=== PATIENT | female | born 1965 | race Caucasian/White ===

== ENCOUNTER 2022-04-25 07:21 | Outpatient (CLI) | payer OTHER, SELFPAY ==
[2022-04-25 07:45] LABS: Basophils Absolute Auto 0.1 K/mm3 (0.0-0.1); Eosinophils Absolute Auto 0.3 K/mm3 (0-0.3); Eosinophils Percent Auto 4.1 % (0-4.4); Hematocrit 41.2 % (37.0-47.0); Hemoglobin 13.6 g/dL (12.0-15.0); Immature Granulocyte Absolute 0.02 K/mm3 (0.00-0.031); Immature Granulocyte Percent A 0.3 % (0-0.5); Lymphocytes Absolute Auto 2.49 K/mm3 (0.9-3.2); Lymphocytes Percent Auto 34.3 % (18.3-44.2); Mean Corpuscular Hemoglobin 31.1 pg (26-34); Mean Corpuscular Volume 94.3 fl (80-100); Mean Platelet Volume 9.1 fl (7.4-10.4); Monocytes Absolute Auto 0.5 K/mm3 (0.1-0.6); Monocytes Percent Auto 7.4 % (2.6-8.5); Neutrophils Absolute Auto 3.9 K/mm3 (1.3-6.7); Neutrophils Percent Auto 52.9 % (45.5-73.1); Platelet Count Result 327 k/mm3 (150-375); Red Blood Count 4.37 M/mm3 (4.2-5.4); Red Cell Distribution Width 13.2 % (11.5-14.5); White Blood Count 7.3 K/mm3 (4.5-10.0)
[2022-04-25 07:46] LABS: Appearance Urine Clear (Clear); Bilirubin Urine Negative (Negative); Blood Urine Negative (Negative); Color Urine Yellow (Yellow); Glucose Urine UA Negative (Negative); Ketones Urine Negative (Negative); Leukocyte Esterase Ur Negative LEU/UL (Negative); Nitrate Urine Negative (Negative); Protein Urine Negative (Negative); Specific Grav Ur 1.025 (1.001-1.035); Urobilinogen Urine 0.2 mg/dL (<2.0); pH Urine 6.5 (5.0-9.0)
[2022-04-25 07:54] LABS: Mucus Urine Rare /lpf; RBC Urine 0-2 /hpf (0-2); Squamous Epithelial Cell Urine Rare /hpf (Few); WBC Urine 0-3 /hpf
[2022-04-25 08:01] LABS: Add Urine Microscopic? YES
[2022-04-25 08:02] LABS: Alanine Aminotransferase 19 U/L (6-35); Albumin Level 4.4 g/dL (3.5-5.1); Alkaline Phosphatase 58 U/L (38-126); Anion Gap 6 mmol/L (8-16); Aspartate Amino Transferase 24 U/L (14-36); Bilirubin,Total 0.6 mg/dL (0.2-1.3); Blood Urea Nitrogen 14 mg/dL (7-17); Calcium 8.5 mg/dL (8.4-10.2); Carbon Dioxide 27 mmol/L (22-30); Chloride 107 mmol/L (98-107); Cholesterol 223 mg/dL (0-200); Estimated Glomerular Filt Rate > 60; Glucose 106 mg/dL (65-110); HDL Direct 56 mg/dL; Potassium 4.4 mmol/L (3.4-5.0); Sodium 140 mmol/L (137-145); Triglycerides 78 mg/dL (<150); Uric Acid 4.3 mg/dL (2.5-7.5)
[2022-04-25 08:10] LABS: LDL Cholesterol Direct 120 mg/dL
[2022-04-25 08:28] LABS: Free T4 Free Thyroxine 1.54 ng/mL (0.78-2.19); Vitamin D 25 Hydroxy 43.2 ng/mL
== END 2022-04-25 07:22 | disposition home or self-care (01) ==
PROVIDERS: Visit Provider Internal Medicine
DX: Z13.6 Encounter for screening for cardiovascular disorders (principal); Z13.220 Encounter for screening for lipoid disorders; Z13.29 Encounter for screening for other suspected endocrine disorder; E03.9 Hypothyroidism, unspecified
CPT/HCPCS: 36415; 80053; 80061; 81001; 82306; 84439; 84443; 84550; 85025

== ENCOUNTER 2022-08-15 07:52 | Outpatient (CLI) | payer OTHER, SELFPAY ==
--- NOTE | ~2022-08-15 | MM_ITS ---
EXAMINATION: MM screening omar BI w mario HISTORY: Screening TECHNIQUE: Craniocaudal and mediolateral oblique 3-D tomosynthesis images were obtained and synthetic 2-D images were generated. CAD analysis was submitted and interpreted. COMPARISON: No prior mammogram is available for comparison at this institution. BREAST PARENCHYMAL COMPOSITION: There are scattered areas of fibroglandular density. FINDINGS: There is no evidence of suspicious mass, calcification, or architectural distortion to sugg est malignancy in either breast. There has been no suspicious interval change. IMPRESSION: 1. No mammographic evidence of malignancy. 2. Recommend routine screening mammography in one year. BI-RADS Category 1: Negative Reviewed, dictated and finalized at location A. PREAD SEAMER
== END 2022-08-15 07:53 | disposition home or self-care (01) ==
PROVIDERS: PCP Internal Medicine; Visit Provider Internal Medicine
DX: Z12.31 Encounter for screening mammogram for malignant neoplasm of breast (principal)
CPT/HCPCS: 77063; 77067

== ENCOUNTER 2023-09-04 07:36 | Outpatient (CLI) | payer OTHER, SELFPAY ==
[2023-09-04 08:33] LABS: Alanine Aminotransferase 25 U/L (6-35); Albumin Level 4.2 g/dL (3.5-5.1); Alkaline Phosphatase 69 U/L (38-126); Aspartate Amino Transferase 25 U/L (14-36); Bilirubin,Total 0.6 mg/dL (0.2-1.3); Blood Urea Nitrogen 15 mg/dL (7-17); Calcium 9.1 mg/dL (8.4-10.2); Carbon Dioxide 27 mmol/L (22-30); Chloride 106 mmol/L (98-107); Cholesterol 222 mg/dL (0-200); Estimated Glomerular Filt Rate > 60; Glucose 98 mg/dL (65-110); HDL Direct 53 mg/dL; Potassium 4.5 mmol/L (3.4-5.0); Triglycerides 59 mg/dL (<150)
[2023-09-04 08:38] LABS: LDL Cholesterol Direct 125 mg/dL
[2023-09-04 08:42] LABS: Anion Gap 7 mmol/L (8-16); Sodium 140 mmol/L (137-145)
[2023-09-04 09:11] LABS: Basophils Absolute Auto 0.1 K/mm3 (0.0-0.1); Basophils Percent Auto 0.7 % (0.2-1.2); Eosinophils Absolute Auto 0.4 K/mm3 (0-0.3); Eosinophils Percent Auto 4.6 % (0-4.4); Hematocrit 42.4 % (37.0-47.0); Hemoglobin 13.7 g/dL (12.0-15.0); Immature Granulocyte Absolute 0.02 K/mm3 (0.00-0.031); Immature Granulocyte Percent A 0.2 % (0-0.5); Lymphocytes Absolute Auto 2.35 K/mm3 (0.9-3.2); Lymphocytes Percent Auto 28.7 % (18.3-44.2); Mean Corpuscular HGB Conc 32.3 g/dl (32-36); Mean Corpuscular Hemoglobin 30.4 pg (26-34); Mean Corpuscular Volume 94.2 fl (80-100); Mean Platelet Volume 9.8 fl (7.4-10.4); Monocytes Absolute Auto 0.7 K/mm3 (0.1-0.6); Neutrophils Absolute Auto 4.7 K/mm3 (1.3-6.7); Neutrophils Percent Auto 57.8 % (45.5-73.1); Platelet Count Result 359 k/mm3 (150-375); Red Cell Distribution Width 12.9 % (11.5-14.5); Thyroid Stimulating Hormone Reflex 0.427 uIU/mL (0.465-4.68); White Blood Count 8.2 K/mm3 (4.5-10.0)
[2023-09-04 10:16] LABS: Appearance Urine Clear (Clear); Bilirubin Urine Negative (Negative); Blood Urine Negative (Negative); Color Urine Yellow (Yellow); Glucose Urine UA Negative (Negative); Ketones Urine Negative (Negative); Leukocyte Esterase Ur Negative LEU/UL (Negative); Nitrate Urine Negative (Negative); Protein Urine Negative (Negative); Specific Grav Ur 1.021 (1.001-1.035); Urobilinogen Urine 0.2 mg/dL (<2.0); pH Urine 7.5 (5.0-9.0)
[2023-09-04 10:23] LABS: Free T4 Free Thyroxine Reflex 1.57 ng/dL (0.78-2.19)
[2023-09-04 10:31] LABS: Add Urine Microscopic? NO
[2023-09-04 11:20] LABS: Total Triiodothyronine (T3) 1.26 NG/ML (0.97-1.69)
== END 2023-09-04 07:37 | disposition home or self-care (01) ==
LOC: ANHLAB 07:39
PROVIDERS: PCP Internal Medicine; Visit Provider Internal Medicine
DX: Z00.00 Encounter for general adult medical examination without abnormal findings (principal)
CPT/HCPCS: 36415; 80053; 80061; 81003; 84439; 84443; 84480; 85025

== ENCOUNTER 2023-10-12 12:34 | Outpatient (CLI) | payer OTHER, SELFPAY ==
--- NOTE | ~2023-10-12 | MM_ITS ---
EXAMINATION: MM screening omar BI w mario HISTORY: Screening mammogram TECHNIQUE: Craniocaudal and mediolateral oblique 3-D tomosynthesis images were obtained and synthetic 2-D images were generated. CAD analysis was submitted and interpreted. COMPARISON: 08/15/2022 BREAST PARENCHYMAL COMPOSITION: There are scattered areas of fibroglandular density. FINDINGS: No suspicious mass, calcification, or architectural distortion are identified in either екатерина ast to suggest malignancy. There has been no suspicious interval change. IMPRESSION: 1. No mammographic evidence of malignancy. 2. Recommend routine screening mammography in one year. BI-RADS Category 1: Negative Reviewed, dictated and finalized at location A. NMENT MECHANIC
== END 2023-10-12 15:19 | disposition home or self-care (01) ==
PROVIDERS: PCP Internal Medicine; Visit Provider Obstetrics & Gynecology Gynecology
DX: Z12.31 Encounter for screening mammogram for malignant neoplasm of breast (principal)
CPT/HCPCS: 77063; 77067

== ENCOUNTER 2024-02-26 08:00 | Outpatient (CLI) | payer OTHER, SELFPAY ==
--- NOTE | ~2024-02-26 | US_ITS ---
EXAMINATION: US abdomen complete DATE: 02/26/2024 08:27 INDICATION: Left lower quadrant abdominal pain. Abdominal bloating. TECHNIQUE: Multiple grayscale and Doppler ultrasound images of the abdomen were obtained. COMPARISON: None FINDINGS: Abdominal aorta is normal in caliber. Inferior vena cava is normal. The visualized portions of the head, body, and tail of the pancreas are normal. The liver is normal without focal lesion. Th ere is normal flow in main portal vein. The gallbladder is normal in size. No gallstones or gallbladd er wall thickening. There is no sonographic Harding's sign. The common duct is normal and measures 3 m m. The kidneys are normal in size. The spleen is normal in size. There is no visible abnormality in l eft lower quadrant. IMPRESSION: 1. Normal complete abdomen ultrasound. Reviewed, dictated and finalized at location E.
== END 2024-02-26 08:01 | disposition home or self-care (01) ==
LOC: ANHIMG 08:02
PROVIDERS: PCP Internal Medicine; Visit Provider Advanced Practice Midwife
DX: R10.32 Left lower quadrant pain (principal); R14.0 Abdominal distension (gaseous)
CPT/HCPCS: 76700

== ENCOUNTER 2024-02-28 14:40 | Outpatient (CLI) | payer OTHER, SELFPAY ==
--- NOTE | ~2024-02-28 | US_ITS ---
US pelvic complete w TV Ordering provider: Samara Villegas CNM History: . LLQ PAIN . Comparison: None. Technique: Transabdominal and endovaginal ultrasound of the pelvis (Doppler ultrasound interrogation techniques used as needed for this exam.) FINDINGS: CERVIX: Normal. UTERUS: Partial hysterectomy CUL DE SAC: No free fluid. RIGHT OVARY: Normal in size measuring 1.6x 0.8x 1.1 cm. Normal echotexture. Doppler vascular flow pre sent. LEFT OVARY: Not visualized. ADNEXA: Normal. No mass. IMPRESSION: Status post hysterectomy. Left ovary is not visualized. Otherwise, normal pelvic ultrasound. Reviewed, dictated and finalized at location A. IMPRESSION: Status post hysterectomy. Left ovary is not visualized. Otherwise, normal pelvi c ultrasound.
== END 2024-02-28 14:41 | disposition home or self-care (01) ==
LOC: ANHIMG 14:43
PROVIDERS: PCP Internal Medicine; Visit Provider Advanced Practice Midwife
DX: R10.32 Left lower quadrant pain (principal); R14.0 Abdominal distension (gaseous); Z90.710 Acquired absence of both cervix and uterus
CPT/HCPCS: 76830; 76856

== ENCOUNTER 2024-10-07 07:13 | Outpatient (CLI) | payer OTHER, SELFPAY ==
[2024-10-07 07:29] LABS: Basophils Absolute Auto 0.1 K/mm3 (0.0-0.1); Basophils Percent Auto 0.7 % (0.2-1.2); Eosinophils Absolute Auto 0.3 K/mm3 (0-0.3); Eosinophils Percent Auto 4.4 % (0-4.4); Hematocrit 41.4 % (37.0-47.0); Immature Granulocyte Absolute 0.02 K/mm3 (0.00-0.031); Immature Granulocyte Percent A 0.3 % (0-0.5); Lymphocytes Absolute Auto 2.18 K/mm3 (0.9-3.2); Lymphocytes Percent Auto 28.8 % (18.3-44.2); Mean Corpuscular HGB Conc 33.8 g/dl (32-36); Mean Corpuscular Volume 91.6 fl (80-100); Monocytes Absolute Auto 0.6 K/mm3 (0.1-0.6); Monocytes Percent Auto 8.1 % (2.6-8.5); Neutrophils Absolute Auto 4.4 K/mm3 (1.3-6.7); Neutrophils Percent Auto 57.7 % (45.5-73.1); Platelet Count Result 310 k/mm3 (150-375); Red Blood Count 4.52 M/mm3 (4.2-5.4); White Blood Count 7.6 K/mm3 (4.5-10.0)
[2024-10-07 07:31] LABS: Add Urine Microscopic? NO; Appearance Urine Clear (Clear); Bilirubin Urine Negative (Negative); Blood Urine Negative (Negative); Color Urine Yellow (Yellow); Glucose Urine UA Negative (Negative); Ketones Urine Negative (Negative); Leukocyte Esterase Ur Negative LEU/UL (Negative); Nitrate Urine Negative (Negative); Protein Urine Negative (Negative); Specific Grav Ur 1.018 (1.001-1.035); Urobilinogen Urine 0.2 mg/dL (<2.0)
[2024-10-07 07:44] LABS: Alanine Aminotransferase 28 U/L (6-35); Albumin Level 4.2 g/dL (3.5-5.1); Alkaline Phosphatase 75 U/L (38-126); Anion Gap 6 mmol/L (4-12); Aspartate Amino Transferase 25 U/L (14-36); Bilirubin,Total 0.8 mg/dL (0.2-1.3); Blood Urea Nitrogen 17 mg/dL (7-17); Calcium 9.3 mg/dL (8.4-10.2); Carbon Dioxide 27 mmol/L (22-30); Chloride 104 mmol/L (98-107); Cholesterol 210 mg/dL (0-200); Estimated Glomerular Filt Rate > 60; Glucose 95 mg/dL (65-110); HDL Direct 57 mg/dL; Potassium 4.5 mmol/L (3.4-5.0); Sodium 137 mmol/L (137-145); Triglycerides 76 mg/dL (<150)
[2024-10-07 07:54] LABS: LDL Cholesterol Direct 136 mg/dL
[2024-10-07 08:14] LABS: Thyroid Stimulating Hormone 0.878 uIU/mL (0.465-4.680)
[2024-10-07 08:17] LABS: Free T4 Free Thyroxine 1.34 ng/dL (0.78-2.19)
== END 2024-10-07 07:14 | disposition home or self-care (01) ==
LOC: ANHLAB 07:15
PROVIDERS: PCP Internal Medicine; Visit Provider Internal Medicine
DX: Z00.00 Encounter for general adult medical examination without abnormal findings (principal); E03.9 Hypothyroidism, unspecified
CPT/HCPCS: 36415; 80053; 80061; 81003; 84439; 84443; 85025

== ENCOUNTER 2024-11-14 15:30 | Outpatient (CLI) | payer OTHER, SELFPAY ==
--- NOTE | ~2024-11-14 | MM_ITS ---
EXAMINATION: MM screening omar BI w mario HISTORY: Screening TECHNIQUE: Craniocaudal and mediolateral oblique 3-D tomosynthesis images were obtained and synthetic 2-D images were generated. CAD analysis was submitted and interpreted. COMPARISON: Comparison to multiple prior studies sequentially, with oldest reviewed study dated 07/30. BREAST PARENCHYMAL COMPOSITION: Not dense: There are scattered areas of fibroglandular density. FINDINGS: There is no evidence of suspicious mass, calcification, or architectural distortion to sugg est malignancy in either breast. There has been no suspicious interval change. IMPRESSION: 1. No mammographic evidence of malignancy. 2. Recommend routine screening mammography in one year. BI-RADS Category 1: Negative Reviewed, dictated and finalized at location B.
--- OUTSIDE RECORDS SUMMARY | 2024-11-14 17:26 | XMS_ITS | Referral Summary ---
Author Organization [facility] Jose at the [facility] [place] Address [facility] [place] [address] Care Team Providers Care Men'S Swim Coach Name Role Phone Ky Leyva MD Primary Care Provider [phone] Allergies No known active allergies Medications levothyroxine (SYNTHROID) 100 mcg tablet 0 11/23/2018 Active cholecalciferol (VITAMIN D-3) 1,000 unit tablet 1,000 Units daily Active Active Problems No known active problems Social History Tobacco Use Types Packs/Day Years Used Date Smoking Tobacco: Never Alcohol Use Standard Drinks/Week Comments Yes 0 (1 standard drink = 0.6 oz pur e alcohol) AUDIT-C Answer Date Recorded Frequency of Alcohol Consumption Monthly or less 12/09/2018 Average Number of Drinks 1 or 2 019 Frequency of Binge Drinking Never 11/28 Personal Safety Answer Date Recorded Getting School Help Needed Not on file 11/11 Comments No Sex and Gender Information Value Date Recorded Sex Assigned at Not on file Legal Sex Female 3:29 AM PUBLIC POLICY ANALYST Gender Identity Not on file Sexual Orientation Not on file Last Filed Vital Signs Vital Sign Reading Time Taken Comments Blood Pressure 128/70 03/10/2021 11:41 AM CDT Pulse 0 10/25/2015 10:15 AM PUBLIC POLICY ANALYST Temperature - - Respiratory Rate - - Oxygen Saturation - - Inhaled Oxygen Concentration - - Weight 66.7 kg (147 lb) 03/10/2021 11:41 AM CDT Height 167.6 cm (5' 6 ) 03/10/2021 11:41 AM CDT Body Mass Index 23.73 03/10/2021 11:41 AM CDT Plan of Treatment Not on file Insurance AETNA SIG [id number] AETNA SIGNATURE [facility] AETNA SIG [id number] Care Teams Men'S Swim Coach Relationship Specialty Start Date End Date Ky Leyva MD [address] [place] [address] PCP - General 03/06/20
--- OUTSIDE RECORDS SUMMARY | 2024-11-14 17:26 | XMS_ITS | Clinical Summary ---
Author Organization [facility] Address [address] [place] [id number] Care Team Providers Care Licensing Services Clerk Name Role Phone Ky Leyva MD Primary Care Provider [phone] Allergies No known active allergies Medications levothyroxine (SYNTHROID) 100 mcg tablet 0 11/23/2018 Active cholecalciferol (VITAMIN D-3) 1,000 unit tablet 1,000 Units daily Active Active Problems No known active problems Surgical History Surgery Date Site/Laterality Comments TUBAL LIGATION Bilateral HYSTERECTOMY 03/30/2008 - 04/29/2008 [facility] for AUB/dysmenorrhea. 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 DISK ASSEMBLER Gender Identity Not on file Sexual Orientation Not on file Obstetrics History Para Term AB IAB SAB Ectopic Multiple Livin g Live Births 2 2 2 Date Outcome GA Total Labor Labor/2nd/3rd Weight Sex Type Anes PTL Mary A1 A5 Name Clin Term Term Last Filed Vital Signs Vital Sign Reading Time Taken Comments Blood Pressure 128/70 03/10/2021 11:41 AM CDT Pulse 0 10/25/2015 10:15 AM GRAPHITE DISK ASSEMBLER Temperature - - Respiratory Rate - - Oxygen Saturation - - Inhaled Oxygen Concentration - - Weight 66.7 kg (147 lb) 03/10/2021 11:41 AM CDT Height 167.6 cm (5' 6 ) 03/10/2021 11:41 AM CDT Body Mass Index 23.73 03/10/2021 11:41 AM CDT Plan of Treatment Not on file Insurance AETNA SIG [id number] [facility] AETNA SIG [id number] Care Teams Licensing Services Clerk Relationship Specialty Start Date End Date Ky Leyva MD [address] [place] [id number] PCP - General 03/06/20
--- OUTSIDE RECORDS SUMMARY | 2024-11-14 17:26 | XMS_ITS | Clinical Summary ---
Author Organization [facility] Address [facility] [place] [address] Care Team Providers Care Air Deodorizer Servicer Name Role Phone Ky Leyva MD Primary Care Provider [phone] Allergies No known active allergies Medications Cholecalciferol (VITAMIN D) 2000 units Tab Take 1 tablet (50 mcg total) by mouth daily. Active levothyroxine (SYNTHROID) 100 MCG tabletIndications: Acquired hypothyroidism TAKE 1 TABLET(100 MCG) BY MOUTH EVERY MORNING 90 tablet 1 11/09/19 25 Active levothyroxine (SYNTHROID) 100 MCG tabletIndications: Acquired hypothyroidism TAKE 1 TABLET(100 MCG) BY MOUTH EVERY MORNING 90 tablet 08/11/20 24 025 Discontinued Active Problems Problem Noted Date Diagnosed Date Hyperlipidemia 05/13/2021 Low vitamin D level 11/04/2017 Annual physical exam 08/12/2012 Hypothyroidism 08/12/2012 Encounters Date Type Department Care Team Description 10/31/2024 Telephone [facility] Family [facility] Medicine [address] [phone] Ky Leyva MD Lab Results 10/07/2024 Scan e[employer] INFO SRVCS Scanned, Doc [facility] (SCAN) 10/04/2024 Telephone [facility] Family & Internal [address] [phone] Ky Leyva MD Lab Results 09/07/2024 10:20 AM CLINICAL SCIENCES PROFESSOR Office Visit [facility] [address] [phone] Ky Leyva MD Physical 09/07/2024 Travel from Last 3 Months Immunizations Name Administration Dates Next Due Influenza (Generic) 06/09/2024,06/18/2018 Tdap (Generic) 10/24/2021 Family History Medical History Relation Comments Hypertension Father Kidney Cancer Father Hyperlipidemia Maternal Grandfather CHF Maternal Grandmother Diabetes Maternal Grandmother Osteoporosis Mother Ovarian Cancer Paternal Grandmother Relation Status Comments Father Maternal Grandfather Maternal Grandmother Mother Paternal Grandmother Social History Tobacco Use Types Packs/Day Years Used Date Smoking Tobacco: Never Smokeless Tobacco: Never Alcohol Use Standard Drinks/Week Comments Yes 0 (1 standard drink = 0.6 oz pur e alcohol) 1-2 drinks a month AUDIT-C Answer Date Recorded Frequency of Alcohol Consumption 2-3 times a wee k 01/18/2020 Average Number of Drinks 1 or 2 020 Frequency of Binge Drinking Never 12/29 PHQ-2 Answer Date Recorded Patient Health Questionnaire-2 Score 0 09/07/2024 Comments No Sex and Gender Information Value Date Recorded Sex Assigned at Female 11/16/2018 8:49 AM CDT Legal Sex Female 8:11 PM CDT Gender Identity Female 11/16/2018 8:49 AM CDT Sexual Orientation Straight 11/16/2018 8: 49 AM CDT Last Filed Vital Signs Vital Sign Reading Time Taken Comments Blood Pressure 130/68 09/07/2024 10:51 AM CLINICAL SCIENCES PROFESSOR Pulse 62 09/07/2024 10:51 AM CLINICAL SCIENCES PROFESSOR Temperature 37.1 C (98.8 F) 09/07/2024 10:51 AM CLINICAL SCIENCES PROFESSOR Respiratory Rate 16 09/07/2024 10:51 AM CLINICAL SCIENCES PROFESSOR Oxygen Saturation 98% 09/07/2024 10:51 AM CLINICAL SCIENCES PROFESSOR Inhaled Oxygen Concentration - - Weight 66.5 kg (146 lb 9.6 oz) 09/07/2024 10:51 AM CLINICAL SCIENCES PROFESSOR Height 167.6 cm (5' 6 ) 09/07/2024 10:51 AM CLINICAL SCIENCES PROFESSOR Body Mass Index 23.66 09/07/2024 10:51 AM CLINICAL SCIENCES PROFESSOR Plan of Treatment Health Maintenance Due Date Last Done Comments Hepatitis C 1983 Annual Physical 09/07/2025 09/07/2024, 1208/2022, 05/11/2022, Additional history exists COVID-19 Vaccine ( season) 2025 05/15/2022, 08/26/2021, 09/10/2020, Additional history exists Postponed from 04/30/2024 (Patient Refused) Zoster Vaccines (1 of 2) 09/07/2025 Pos tponed from 2014 (Patient Refused) Mammogram Screening 10/12/2025 10/12/2023, Colorectal Cancer Screening FIT-DNA (3 Years) 09/19/2027 09/19/2024, 06/04/2021, 05/17/2018 DTaP, Tdap and Td Vaccines (2 - Td or Tdap) 10/24/2031 10/24/2021 RSV Immunization or 60+ Years (1 - 1-dose 75+ series) 2039 Influenza Adult Completed 06/09/2024, 06/18/2018 PHQ-2 (Physician [place]) Completed 09/07/2024 Meningococcal B Vaccine Aged Out No l onger eligible based on patient's age to complete this topic Meningococcal Vaccine Aged Out No audrey shannan eligible based on patient's age to complete this topic Pneumococcal Vaccine: Pediatrics (0 to 5 Years) and At-Risk Patients (6 to 64 Years) Aged Out No longer eligible based on patient's age to complete this topic RSV Immunizations Under 20 Months Aged Out No longer eligible based on patient's age to complete this topic Procedures Procedure Name Priority Date/Time Associated Diagnosis Comments OUTSIDE LAB (SCAN ORDER) 10/07/2024 OUTSIDE LAB (SCAN ORDER) 10/07/2024 COLOGUARD (EXACT SCIENCE) Routine 09/19/2024 5:45 AM CLINICAL SCIENCES PROFESSOR Screening for colon cancer MAMMOGRAM GENERIC (SCAN ORDER) 10/12/2023 from Last 3 Months or Most Recently Relevant to Health Maintenance Results * OUTSIDE LAB (SCAN ORDER) (10/07/2024) Only the most recent of2 resultswithin the time period is included. 10/07/2024 [facility] Scanned SCANNING Final Resu lt * COLOGUARD (EXACT SCIENCE) (09/19/2024 5:45 AM CLINICAL SCIENCES PROFESSOR) COLOGUARD RESULT Negative Negative [employer] [place] (CLIA #:[id number]) Comment: NEGATIVE TEST RESULT. A negative Cologuard result indicates a low likelihood that a colorectal cancer (CRC) or advanced adenoma (adenomatous polyps with more advanced pre-malignant features) is present. The chance that a person with a negative Cologuard test has a colorectal cancer is less than 1 in 1500 (negative predictive value >99.9%) or has an advanced adenoma is less than 5.3% (negative predictive value 94.7%). These data are based on a prospective cross-sectional study of 10,000 individuals at average risk for colorectal cancer who were screened with both Cologuard and colonoscopy. (Jean Martin al, N Engl J Med 2014;370(14):7130-6810) The normal value (reference range) for this assay is negative. COLOGUARD RE-SCREENING RECOMMENDATION: Periodic colorectal cancer screening is an important part of preventive healthcare for asymptomatic individuals at average risk for colorectal cancer. Following a negative Cologuard result, the [place] Cancer Society and U.S. Multi-Society Task Force screening guidelines recommend a Cologuard re-screening interval of 3 years. References: [place] [employer] Society Guideline for Colorectal Cancer Screening: https://www.cancer.org/cancer/kxmrq-iwcoeu-xvbzwu/weghkaofx-ddosuwepb-zdnlkbo/ac s-rec ommendations.html.; Umang DK, Anjel CR, Walter JuanK, Colorectal Cancer Screening: Recommendations for Physicians and Patients from the U.S. Multi-Society Task Force on Colorectal Cancer Screening , Am J Gastroenterology 2017; 112:7290-9438. TEST DESCRIPTION: Composite algorithmic analysis of stool DNA-biomarkers with hemoglobin immunoassay. Quantitative values of individual biomarkers are not reportable and are not associated with individual biomarker result reference ranges. Cologuard is intended for colorectal cancer screening of adults of either sex, 45 years or older, who are at average-risk for colorectal cancer (CRC). Cologuard has been approved for use by the U.S. FDA. The performance of Cologuard was established in a cross sectional study of average-risk adults aged 50-84. Cologuard performance in patients ages 45 to 49 years was estimated by sub-group analysis of near-age groups. Colonoscopies performed for a positive result may find as the most clinically significant lesion: colorectal cancer [4.0%], advanced adenoma (including sessile serrated polyps greater than or equal to 1cm diameter) [20%] or non- advanced adenoma [31%]; or no colorectal neoplasia [45%]. These estimates are derived from a prospective cross-sectional screening study of 10,000 individuals at average risk for colorectal cancer who were screened with both Cologuard and colonoscopy. (Jean Martin al, N Engl J Med 2014;370(14):2141-7688.) Cologuard may produce a false negative or false positive result (no colorectal cancer or precancerous polyp present at colonoscopy follow up). A negative Cologuard test result does not guarantee the absence of CRC or advanced adenoma (pre-cancer). The current Cologuard screening interval is every 3 years. ([place] Cancer Society and U.S. Multi-Society Task Force). Cologuard performance data in a 10,000 patient pivotal study using colonoscopy as the reference method can be accessed at the following location: www.[employer].com/results. Additional description of the Cologuard test process, warnings and precautions can be found at www.cologuard.com. STOOL STOOL SPECIMEN / Unknown 09/19/2024 5:45 AM CLINICAL SCIENCES PROFESSOR 09/20/2024 10:10 AM CLINICAL SCIENCES PROFESSOR Ky Leyva MD BODY FLUIDS AND STOOLS ORDERAB LES Final Result [employer] ([employer] [facility]) [address] [place] [address], [employer] (CLIA #:[id number]) [address] [place] [address] * MAMMOGRAM GENERIC (SCAN ORDER) (10/12/2023) Anatomical Region Laterality Modality Other 10/12/2023 Doc [facility] Scanned SCANNING Final Resu lt from Last 3 Months or Most Recently Relevant to Health Maintenance Insurance [employer] Care Teams Air Deodorizer Servicer Relationship Specialty Start Date End Date Ky Leyva MD [address] [place] [id number] PCP - General INTERNAL MEDICINE 11/09/18
== END 2024-11-14 15:31 | disposition home or self-care (01) ==
PROVIDERS: PCP Internal Medicine; Visit Provider Obstetrics & Gynecology Gynecology
DX: Z12.31 Encounter for screening mammogram for malignant neoplasm of breast (principal)
CPT/HCPCS: 77063; 77067

== ENCOUNTER 2025-08-04 07:03 | Outpatient (CLI) | payer OTHER, SELFPAY ==
--- OUTSIDE RECORDS SUMMARY | 2025-08-04 07:07 | XMS_ITS | Clinical Summary ---
Author Organization [facility] Address [facility] [place] [address] Care Team Providers Care Surface Lay Out Technician Name Role Phone Ky Leyva MD Primary Care Provider [phone] Allergies No known active allergies Medications Cholecalciferol (VITAMIN D) 2000 units Tab Take 1 tablet (50 mcg total) by mouth daily. Active levothyroxine (SYNTHROID) 100 MCG tabletIndications:A cquired hypothyroidism Take 1 tablet (100 mcg total) by mouth every morning. 90 tablet 3 5 Active Active Problems Problem Noted Date Diagnosed Date Hyperlipidemia 05/13/2021 Low vitamin D level 11/04/2017 Annual physical exam 08/12/2012 Hypothyroidism 08/12/2012 Encounters Date Type Department Care Team Description 08/01/2025 9:40 AM STAFF ENGINEER Office Visit [facility] Family & Internal Medicine [address] [phone] Ky Leyva MD Physical 08/01/2025 Travel from Last 3 Months Immunizations Immunization Administration Dates Next Due Influenza (Generic) 06/09/2024,06/18/2018 [...] Sign Reading Time Taken Comments Blood Pressure 124/70 08/01/2025 10:40 AM STAFF ENGINEER Pulse 58 08/01/2025 10:40 AM STAFF ENGINEER Temperature 36.6 C (97.9 F) 08/01/2025 10:40 AM STAFF ENGINEER Respiratory Rate 16 08/01/2025 10:40 AM STAFF ENGINEER Oxygen Saturation 99% 08/01/2025 10:40 AM STAFF ENGINEER Inhaled Oxygen Concentration - - Weight 66.4 kg (146 lb 6.4 oz) 08/01/2025 10:40 AM STAFF ENGINEER Height 167.6 cm (5' 6) 08/01/2025 10:40 AM STAFF ENGINEER Body Mass Index 23.63 08/01/2025 10:40 AM STAFF ENGINEER Plan of Treatment Health Maintenance Due Date Last Done Comments Hepatitis C 1983 Zoster Vaccines (1 of 2) 09/07/2025 Pos tponed from 2014 (Patient Refused) COVID-19 Vaccine ( season) 2026 05/15/2022, 08/26/2021, 09/10/2020, Additional history exists Postponed from 04/30/2025 (Patient Refused) Annual Physical 08/01/2026 08/01/2025, 0 04/2025, 08/19/2023, Additional history exists Influenza Adult (#1) 2026 06/09/2024, 06/18/20 18 Postponed from 05/30/2025 (Patient Refused) Pneumococcal Vaccine: 50+ Years (1 of 1 - PCV) 08/01/2026 Postponed from 2014 (Patient Refused) Mammogram Screening 11/14/2026 11/14/2024, 10/12/2023, 08/15/2022, Additional history exists Colorectal Cancer Screening FIT-DNA (3 Years) 09/19/2027 09/19/2024, 09/19/2024, 06/04/2021, Additional history exists DTaP, Tdap and Td Vaccines (2 - Td or Tdap) 10/24/2031 10/24/2021 RSV Immunization or 60+ Years (1 - 1-dose 75+ series) 2039 PHQ-2 (Physician [place]) Completed 09/07/2024 Hepatitis A Vaccines Aged Out No long er eligible based on patient's age to complete this topic Meningococcal B Vaccine Aged Out No l onger eligible based on patient's age to complete this topic Meningococcal Vaccine Aged Out No audrey shannan eligible based on patient's age to complete this topic RSV Immunizations Under 20 Months Aged Out No longer eligible based on patient's age to complete this topic Procedures Procedure Name Priority Date/Time Associated Diagnosis Comments MAMMOGRAM GENERIC (SCAN ORDER) 11/14/2024 COLOGUARD (EXACT SCIENCE) Routine 09/19/2024 5:45 AM STAFF ENGINEER Screening for colon cancer from Last 3 Months or Most Recently Relevant to Health Maintenance Results * MAMMOGRAM GENERIC (SCAN ORDER) (11/14/2024) Anatomical Region Laterality Modality Other 11/14/2024 [facility] Scanned SCANNING Final Resu lt * COLOGUARD (EXACT SCIENCE) (09/19/2024 5:45 AM STAFF ENGINEER) COLOGUARD RESULT Negative Negative [employer] (CLIA #:[id number]) Comment: NEGATIVE TEST RESULT. A negative Cologuard [...] screened with both Cologuard and colonoscopy. (Jean Truong, N Engl J Med 2014;370(14):8256-5414) The normal value (reference range) for this assay is negative. COLOGUARD RE-SCREENING RECOMMENDATION: Periodic colorectal cancer screening is an important part of preventive healthcare for asymptomatic individuals at average risk for colorectal cancer. Following a negative Cologuard result, the [place] Cancer Society and U.S. Multi-Society Task Force screening guidelines recommend a Cologuard re-screening interval of 3 years. References: [place] [employer] Guideline for Colorectal Cancer Screening: https://www.cancer.org/cancer/rsmjw-apjhkz-etojtm/voyzzowra-ufhfsbyjx-cuvxqiq/ac s-rec ommendations.html.; Umang DK, Anjel STRANGE, Walter JuanK, Colorectal Cancer Screening: Recommendations for Physicians and Patients from the U.S. Multi-Society Task Force on Colorectal Cancer Screening , Am J Gastroenterology 2017; 112:9100-1191. TEST DESCRIPTION: Composite algorithmic analysis of stool [...] were screened with both Cologuard and colonoscopy. (Imperiale T. et al, N Engl J Med 2014;370(14):7622-0180.) Cologuard may produce a false negative or false positive result (no colorectal cancer or precancerous polyp present at colonoscopy follow up). A negative Cologuard test result does not guarantee the absence of CRC or advanced adenoma (pre-cancer). The current Cologuard screening interval is every 3 years. ([place] Cancer Society and U.S. Multi-Society Task Force). Cologuard performance data in a 10,000 patient pivotal study using colonoscopy as the reference method can be accessed at the following location: www.[employer]/results. Additional description of the Cologuard test process, warnings and precautions can be found at www.cologuard.com. STOOL STOOL SPECIMEN / Unknown 09/19/2024 5:45 AM STAFF ENGINEER 09/20/2024 10:10 AM STAFF ENGINEER yK Leyva MD BODY FLUIDS AND STOOLS ORDERAB LES Final Result Performing Organization Address City/State/[facility] Co de Phone Number [email or web address] ([employer] [address] [facility]) [address] [place] [address], [employer] (CLIA #:[id number]) [address] [place] [address] from Last 3 Months or Most Recently Relevant to Health Maintenance Insurance [employer] Care Teams Surface Lay Out Technician Relationship Specialty Start Date End Date Ky Leyva MD [address] [place] [id number] PCP - General INTERNAL MEDICINE 11/09/18
[2025-08-04 07:37] LABS: Hematocrit 39.0 % (37.0-47.0); Hemoglobin 13.5 g/dL (12.0-15.0); Immature Granulocyte Percent A 0.3 % (0-0.5); Lymphocytes Absolute Auto 1.92 K/mm3 (0.9-3.2); Mean Corpuscular HGB Conc 34.6 g/dl (32-36); Mean Corpuscular Hemoglobin 31.0 pg (26-34); Mean Corpuscular Volume 89.4 fl (80-100); Nucleated Red Blood Cells Absolute Auto 0.000 K/mm3 (0.0-0.012); Nucleated Red Blood Cells Perc 0.0 % (0.0-0.2); Platelet Count Result 320 k/mm3 (150-375); Red Blood Count 4.36 M/mm3 (4.2-5.4); White Blood Count 6.7 K/mm3 (4.5-10.0)
[2025-08-04 07:41] LABS: Add Urine Microscopic? NO; Appearance Urine Clear (Clear); Glucose Urine UA Negative (Negative); Leukocyte Esterase Ur Negative LEU/UL (Negative); Nitrate Urine Negative (Negative); Specific Grav Ur 1.022 (1.001-1.035)
[2025-08-04 07:54] LABS: Alanine Aminotransferase 28 U/L (6-35); Albumin Level 4.2 g/dL (3.5-5.1); Alkaline Phosphatase 72 U/L (38-126); Anion Gap 4 mmol/L (4-12); Aspartate Amino Transferase 24 U/L (14-36); Bilirubin,Total 0.7 mg/dL (0.2-1.3); Blood Urea Nitrogen 15 mg/dL (7-17); Calcium 9.4 mg/dL (8.4-10.2); Carbon Dioxide 25 mmol/L (22-30); Chloride 108 mmol/L (98-107); Cholesterol 200 mg/dL (0-200); Estimated Glomerular Filt Rate > 60; Glucose 95 mg/dL (65-110); HDL Direct 58 mg/dL; Potassium 4.5 mmol/L (3.4-5.0); Sodium 137 mmol/L (137-145); Total Protein 6.9 g/dL (6.3-8.2); Triglycerides 65 mg/dL (<150)
[2025-08-04 08:30] LABS: Thyroid Stimulating Hormone 0.322 uIU/mL (0.465-4.680)
== END 2025-08-04 07:04 | disposition home or self-care (01) ==
LOC: ANHLAB 07:05
PROVIDERS: PCP Internal Medicine; Visit Provider Internal Medicine
DX: Z00.00 Encounter for general adult medical examination without abnormal findings (principal); E03.9 Hypothyroidism, unspecified; R79.89 Other specified abnormal findings of blood chemistry
CPT/HCPCS: 36415; 80053; 80061; 81003; 82306; 84436; 84443; 85025; 86803